=== PATIENT | male | born 1990 | race Caucasian/White ===

== ENCOUNTER 2021-10-22 09:29 | Emergency (ER) | payer OTHER, SELFPAY ==
[2021-10-22 09:33] VITALS: BP 145/88
[2021-10-22 09:34] VITALS: PULSE 92; O2SAT 97
[2021-10-22 09:35] VITALS: BP 145/88; PULSE 93; RESP 14; TEMP 36.5; O2SAT 97
--- NOTE | 2021-10-22 09:57 | DI.RAD.S_ITS ---
PROCEDURE: XR KNEE LT 3V INDICATIONS: injury TECHNIQUE: 3 views of the knee were acquired. COMPARISON: [facility], MR, MR KNEE RIGHT WITHOUT CONTRAST, 04/30/2019, 7:50. FINDINGS: Bones: Postsurgical changes are seen with metallic screws in the proximal tibia. No acute osseous fracture or dislocation. Irregularity of the medial patella appears to be corticated and may be secondary to a remote prior injury. No significant overlying edema is seen. Soft tissues: No joint effusion. No suspicious soft tissue calcifications. IMPRESSION: Chronic appearing ossification adjacent to the medial patellar facet is most likely secondary to remote prior injury. No acute osseous abnormality. If clinical suspicion and/or symptoms persist, additional imaging with repeat plain films, or advanced imaging (e.g. CT, MRI) may be helpful for further assessment. Dictated by: Angel Gupta M.D. on 10/22/2021 at 10:44 Approved by: Angel Gupta M.D. on 10/22/2021 at 10:48
--- NOTE | 2021-10-22 09:57 | DI.RAD.S_ITS ---
PROCEDURE: XR ANKLE LT MIN 3V INDICATIONS: injury TECHNIQUE: 3 views of the ankle were acquired. COMPARISON: None. FINDINGS: Bones: Small osseous fragment adjacent to the tip of the distal fibula may be secondary to a recent or more remote avulsion injury. Larger corticated ossification adjacent to the distal fibula is likely chronic. Ankle mortise is normally aligned. No suspicious bony lesions. Small plantar calcaneal enthesophyte. Soft tissues: Soft tissue edema is seen over the lateral malleolus. IMPRESSION: Small ossification adjacent to the distal fibular tip may be secondary to a recent avulsion injury. Soft tissue edema is seen at the lateral malleolus. Additional corticated ossification at the lateral mortise joint is most likely chronic. Dictated by: Angel Gupta M.D. on 10/22/2021 at 10:38 Approved by: Angel Gupta M.D. on 10/22/2021 at 10:44
--- NOTE | 2021-10-22 10:32 | ED_ITS ---
HPI - Extremity Injury (Lower) General Chief Complaint: Extremity Injury, Lower Stated Complaint: Left ankle pain Time Seen by Provider: 10/22/21 10:14 Source: patient Mode of arrival: EMS History of Present Illness HPI Narrative: Patient is a healthy 31-year-old male who presents with left ankle pain and swelling. He said he was at work walking off a boat when he rolled his ankle. He had immediate swelling and pain in the lateral malleoli. No knee pain although he did previously of surgery there. No other injury. Now complaining of pain kind of going up his calf. No foot pain. Related Data Previous Rx's Medication Instructions Recorded hydrocodone 5 mg-acetaminophen 325 1 tab PO Q6H PRN pain #10 tabs 10/22/21 mg tablet Allergies Allergy/AdvReac Type Severity Reaction Status Date / Time No Known Drug Allergies Allergy Verified 10/22/21 10:47 Review of Systems Review of Systems Narrative: GENERAL: Denies chills,fever HEENT: Denies throat pain RESPIRATORY: Denies dyspnea, cough, wheezing CARDIOVASCULAR: Denies chest pain, palpitations GASTROINTESTINAL: Denies nausea, vomiting MUSCULOSKELETAL: See HPI SKIN: No rash, no laceration, no pruritus NEUROLOGIC: Denies weakness, dizziness, headache, numbness 8 point review of systems is negative except for those stated above and HPI Patient History Social History Smoking Status: Current some day smoker Smoking Status: Current some day smoker tobacco type: smokeless tobacco alcohol intake frequency: 0-2 drinks per day Substance Use Type: does not use Exam Initial Vital Signs Initial Vital Signs: Vital Signs Blood Pressure 145/88 H 10/22/21 09:33 GENERAL: Well-appearing, well-nourished and in no acute distress. CARDIOVASCULAR: peripheral pulses in tact, cap refill <2 sec RESPIRATORY: No respiratory distress, speaks in full sentences without difficulty EXTREMITIES: Normal range of motion, no clubbing or edema. Neurovascularly intact Left lower extremity significant swelling left lateral malleoli, no knee pain, no foot pain or lateral 5th toe pain. Calf is soft. NEUROLOGICAL: Cranial nerves II through XII grossly intact. Normal gait and speech. SKIN: Warm, dry, no petechiae, no rashes or lesions. Course Orders Ordered: Discontinued Medications Ibuprofen (Ibuprofen 400 Mg Tablet) 800 mg PO NOW ONE Stop: 10/22/21 10:25 Last Admin: 10/22/21 10:47 Dose: 800 mg Documented By: LALIT Vital Signs Vital signs: Vital Signs - 8 hr 10/22/21 09:35 10/22/21 09:33 10/22/21 09:34 Temperature 97.7 F Pulse Rate 93 H 92 H Respiratory Rate 14 Blood Pressure 145/88 H 145/88 H Pulse Oximetry 97 97 Oxygen Delivery Method Room Air MDM - Extremity Injury (Lower) Imaging Data Extremity x-ray #1: Radiologist's Impression: XRay Report Signed Patient: Nasim Pike MR#: [id number] : 1990 Acct:[id number] Age/Sex: 31 / M Date of Service: 10/22/21 Loc: ED Accession Number: [id number] ?? Procedure: XR ankle LT min 3V Ordering Provider: Charlene Preston D.O. PROCEDURE:? XR ANKLE LT MIN 3V ? INDICATIONS:? injury ? TECHNIQUE:? 3 views of the ankle were acquired.? ? COMPARISON:? None. ? FINDINGS:? ? Bones:? Small osseous fragment adjacent to the tip of the distal fibula may be secondary to a recent or more remote avulsion injury.? Larger corticated ossification adjacent to the distal fibula is likely chronic.? Ankle mortise is normally aligned.? No suspicious bony lesions.? Small plantar calcaneal enthesophyte. ? Soft tissues:? Soft tissue edema is seen over the lateral malleolus. ? IMPRESSION:? Small ossification adjacent to the distal fibular tip may be secondary to a recent avulsion injury.? Soft tissue edema is seen at the lateral malleolus.? Additional corticated ossification at the lateral mortise joint is most likely chronic.? Dictated by: Angel Gupta M.D. on 10/22/2021 at 10:38 ? ? Extremity x-ray #2: Radiologist's Impression: XRay Report Signed Patient: Nasim Pike MR#: [id number] : 1990 Acct:[id number] Age/Sex: 31 / M Date of Service: 10/22/21 Loc: ED Accession Number: [id number] ?? Procedure: XR knee LT 3V Ordering Provider: Charlene Preston D.O. PROCEDURE:? XR KNEE LT 3V ? INDICATIONS:? injury ? TECHNIQUE:? 3 views of the knee were acquired.? ? COMPARISON:? [facility], MR, MR KNEE RIGHT WITHOUT CONTRAST, 04/30/2019, 7:50. ? FINDINGS:? ? Bones:? Postsurgical changes are seen with metallic screws in the proximal tibia.? No acute osseous fracture or dislocation.? Irregularity of the medial patella appears to be corticated and may be secondary to a remote prior injury.? No significant overlying edema is seen. ? Soft tissues:? No joint effusion.? No suspicious soft tissue calcifications.? ? ? IMPRESSION:? Chronic appearing ossification adjacent to the medial patellar facet is most likely secondary to remote prior injury.? No acute osseous abnormality.? If clinical suspicion and/or symptoms persist, additional imaging with repeat plain films, or advanced imaging (e.g. CT, MRI) may be helpful for further assessment. ? ? Dictated by: Angel Gupta M.D. on 10/22/2021 at 10:44 ? ? Approved by: Angel Gupta M.D. on 10/22/2021 at 10:48 ? MDM Narrative Medical decision making narrative: Patient is given crutches and orthopedic walking boot. Discharge Plan Departure Patient Disposition: Home Clinical Impression: Ankle fracture Instructions: Ankle Fracture Activity Restrictions/Additional Instructions: *You have been diagnosed with left ankle fracture *What to do: Wear walking boot at all times use crutches as needed may ice as needed as well. *Continue to take medications as directed [place] 1 tablet every 6 hours only if needed for severe pain Ibuprofen 600 mg every 6-8 hours if needed for [id number] pain *Follow up with your primary care provider in 2-3 days or call [phone] Please call orthopedics to schedule follow-up appointment in about 1 week *Return to ER if you should have increasing pain swelling redness or any new, worsening or concerning symptoms CONTROLLED SUBSTANCE DISCHARGE (Narcotoic/benzodiazepine/Flexeril/Phenergan) 1. You have been prescribed narcotic medications, it does have acetaminophen/Tylenol/paracetamol in it, DO NOT TAKE MORE THAN 4,00mg in 24 hours of Tylenol. TRAMADOL DOES NOT CONTAIN TYLENOL 2. Please understand that we cannot provide further refills of narcotics, benzodiazepines or controlled substances through the ED and her pain management will need to be through your provider. 3. While on these medications you cannot drive or operate heavy machinery. 4. You cannot sign legal documents or perform any duties such as this. 5. As long as you're taking opiate pain medications he should also be taking a stool softener such as Colace, Dulcolax, MiraLAX or prune juice, to help avoid constipation. Prescriptions: New hydrocodone-acetaminophen 5-325 mg tablet 1 tab PO Q6H PRN (Reason: pain) Qty: 10 0RF Referrals: [facility] [Provider Group] Visit Report Forms: Patient Portal/API
[2021-10-22] MEDS: IBUPROFEN 400 MG TABLET 800 MG PO (10:47)
[2021-10-22 10:49] VITALS: PULSE 72
== END 2021-10-22 11:28 | disposition home or self-care (01) ==
PROVIDERS: Emergency Provider Emergency Medicine
DX: S82.62XA Displaced fracture of lateral malleolus of left fibula, initial encounter for closed fracture (principal); X50.1XXA Overexertion from prolonged static or awkward postures, initial encounter; Y99.0 Civilian activity done for income or pay
CPT/HCPCS: 73562; 73610; 99283; 99284